=== PATIENT | female | born 1940 | race African-American/Black ===

== ENCOUNTER 2016-05-23 12:53 | Inpatient (IN) | payer OTHER ==
--- NOTE | ~2016-05-23 | OP ---
Record Of Operation [facility] [address] [place]. [address] NAME: AMANUEL JONAS : 38 STATUS : ADM IN PAT#: [id number] AGE: 76 ADM/REG DATE : 05/23/16 MR#: [id number] REPORT SERV DATE: 05/24/16 DICTATED BY: MATTHEW NAIK DATE: 05/23/16 REPORT STATUS : Draft TRANSCRIBED BY: MODL DATE: 05/23/16 DATE OF PROCEDURE: 05/23/2016 PREOPERATIVE DIAGNOSIS: Left femur multiple myeloma. POSTOPERATIVE DIAGNOSIS: Left femur multiple myeloma. PROCEDURE: Left femur IM nail. SURGEON: Robyn Naik M.D. MEDICAL ART THERAPIST: See chart. DESCRIPTION OF PROCEDURE: The patient was taken to the operating room, placed supine on the table in normal fashion without incident. General anesthetic was induced per the anesthesiologist. The patient was carefully positioned, padded, prepped, and draped in normal sterile fashion. Under fluoroscopic guidance, an incision was made in the proximal and lateral trochanter. Starting awl and starting guidewire were then placed through the trochanter into the intramedullary canal, was checked in AP and lateral views. This was followed by a starter reamer and then a ball-tipped guidewire. The guidewire was checked in AP and lateral views at the knee. This was followed by sequential reamers to a 12 x 5, and a 38 x 11 mm nail was chosen and impacted. It was checked in AP and lateral views proximally and distally. The proximal targeting device was used to place two cross screws, one up in the femoral head and one across the trochanters. I could not, by the way, stay two screws both up into the neck because of her small stature versus the configuration of the screws. This was again checked in AP and lateral views. The targeting device disassembled, the wound irrigated, closed, and dressed sterilely. The patient was awakened and taken to the postanesthesia care unit without incident. COMPLICATIONS: None. SPECIMENS: None. BLOOD LOSS: About 50 mL. WTB/MODL Robyn Naik M.D. / [id number] CC: Robyn Naik M.D. Record Of Operation [address] [address] NAME: AMANUEL JONAS : 38 STATUS : ADM IN PAT#: [id number] AGE: 76 ADM/REG DATE : 05/23/16 MR#: [id number] REPORT SERV DATE: 05/24/16 DICTATED BY: MATTHEW NAIK DATE: 05/23/16 REPORT STATUS : Draft TRANSCRIBED BY: MODL DATE: 05/23/16 Crystal Toussaint M.D.
--- NOTE | ~2016-05-23 | DS ---
Discharge Summary [facility] [address] [place]. [address] NAME: AMANUEL OJNAS : 38 STATUS : DIS IN PAT#: [id number] AGE: 76 ADM/REG DATE : 05/23/16 MR#: [id number] REPORT SERV DATE: 06/04/16 DICTATED BY: MATTHEW NAIK DATE: 06/03/16 REPORT STATUS : Draft TRANSCRIBED BY: MARYAN DATE: 06/03/16 Data Collection from hospitalization DISCHARGE DIAGNOSES: 1. Left femur multiple myeloma. 2. Hypertension. 3. History of kidney cancer. 4. Sleep apnea. 5. Osteoarthritis. 6. Hypothyroidism. 7. Hypercholesterolemia. CONSULTATIONS: None. PROCEDURES PERFORMED: Left femur IM nail, 05/23/2016. DISCHARGE MEDICATIONS: Zovirax 400 mg twice a day; aspirin 81 mg daily; Lipitor 40 mg at bedtime; Rocaltrol 0.25 mcg on Mondays, Wednesdays, and Fridays; vitamin B12 of 1000 mcg daily; Decadron 20 mg every 7 days; Lanoxin 0.125 mg with lunch; Colace 100 mg twice a day; Zantac 300 mg daily as needed; ferrous sulfate 300 mg with breakfast and supper; Lasix 40 mg every 48 hours; Imdur 30 mg daily; Theragran tablets one tablet with breakfast; Nephro-Nichol one tablet with lunch; Toprol-XL 50 mg twice a day; Coumadin as instructed; Requip 5 mg twice a day; Apresoline 10 mg twice a day; Tylenol 650 mg every 4 hours as needed; Mylanta 30 mL as needed; Artificial Tears one drop daily as needed in both eyes; Dulcolax 15 mg as needed; [place]ust[place]ord 5/325 one to two tablets every four hours as needed; milk of magnesia 30 mL as needed; Singulair 10 mg daily as needed; Zofran 4 mg every four hours as needed; MiraLAX powder one packet twice a day as needed; ProAir two puffs via inhaler as needed; Pomalyst 2 mg daily. CONDITION AT DISCHARGE: Stable. DISPOSITION: The patient was [facility] on a regular diet with activities as instructed. She would follow up with me two weeks following discharge. HOSPITAL COURSE: This is a 76-year-old female who has been seen in the clinic for followup of left hip pain status post injection on 05/16/2016. The patient said this gave relief for about one day. The patient does have pain with weightbearing. She said that her pain was a 10 on a scale of 0-10. This patient has multiple myeloma, and there is a left hip questionable impending fracture with painful lesion. The right hip have small non-painful lesions. Treatment options were discussed, and it was elected to proceed with surgical intervention. She was admitted to the hospital at this time for further evaluation and treatment. Upon admission, she was taken to the operating room where she underwent the above-mentioned procedure. She tolerated this well. There were no complications. On postop day #1, she was evaluated by Occupational and Physical Therapy. She did have some confusion. She was up sitting in a chair. She had no new complaints. She had normal distal pulses. IV fluids were continued. We encouraged her to increase her oral intake. On the , she was in no Discharge Summary [address] [address] NAME: AMANUEL JONAS : 38 STATUS : DIS IN PAT#: [id number] AGE: 76 ADM/REG DATE : 05/23/16 MR#: [id number] REPORT SERV DATE: 06/04/16 DICTATED BY: MATTHEW NAIK DATE: 06/03/16 REPORT STATUS : Draft TRANSCRIBED BY: MARYAN DATE: 06/03/16 acute distress. MITA hose were in place. She had diminished breath sounds in the bases. Creatinine level was 2.20. She continued to do well. She continued to have a little confusion. O2 saturation was 97% on 2 L nasal cannula. Discharge planning was performed. On 05/27/2016, she was ambulating in the halls with Physical Therapy. Creatinine level was 1.93. Discharge instructions were given. Due to her improved and stable condition, she was discharged to [facility] with the above-stated instructions. Information collected by: Mariam Morrison I submit the above information as my discharge summary. JANE/MARYAN Robyn Naik M.D. / [id number] CC: Meme Kebede M.D. [facility]
[~2016-05-23 12:53] MED LIST: ASAB PO; BIST PO; CLARIT10 PO; CYTOTEC2 PO; DILT-XR180 MG PO; LORT7 PO; LYRICA75 PO; NEUR300 PO; NEXIUM40 PO; T PO; TUMSROLL PO; VIT D PO; VITAMIN B-121000 MC1 PO; VITAMIN B-121000 MC1 SL; VITAMIN D31000 UNIT PO; VOLT75 PO; ZOVI800 PO; ZYRTEC ALLGY10 MG PO
[2016-05-23 16:01] LABS: HEMOGLOBIN 8.5 g/dL (12.0-16.0); MEAN CORPUS HGB CONC 29.7 g/dL (32.0-36.0); MEAN CORPUSCULAR VOLUME 94.1 fL (80-100); MEAN PLATELET VOLUME 10.2 fL (9.2-13.0); RBC DISTRIBUTION WIDTH 22.2 % (12.0-16.0); RED CELL COUNT 3.04 10/6/uL (4.0-5.6); WHITE BLOOD CELLS 6.9 10/3/uL (4.5-10.5)
[2016-05-23 16:02] LABS: HEMATOCRIT 28.6 % (36.0-48.0); MANUAL DIFF YES %; PLATELET COUNT 367 10/3/uL (150-400)
[2016-05-23 16:05] LABS: INTERNATIONAL NORMAL RATI 1.5 UNITS (-); PROTIME (NOT ORD) 18.3 SEC (12.0-14.5)
[2016-05-23 16:14] LABS: A/G RATIO 1.1 (0.7-1.9); ALKALINE PHOSPHATASE 49 U/L (45-117); BUN (BLOOD UREA NITROGEN) 24 MG/DL (6-23); CALCIUM, SERUM 8.9 MG/DL (8.5-10.4); CHLORIDE, SERUM 108 MMOL/L (96-112); CO2 (CARBON DIOXIDE) 32 MMOL/L (24-34); CREATININE 1.86 MG/DL (0.55-1.02); GFR AFRICAN AMERICAN 30 ML/MIN (>=60); GFR NON AFRICAN AMERICAN 26 ML/MIN (>=60); GLOBULIN 2.7 G/DL (2.5-4.1); POTASSIUM, SERUM 3.7 MMOL/L (3.5-5.3); SGOT(AST) 13 U/L (5-40); SGPT(ALT) 17 U/L (5-65); SODIUM, SERUM 148 MMOL/L (135-148); TOTAL BILIRUBIN 0.4 MG/DL (0-1.2); TOTAL PROTEIN 5.7 G/DL (6.0-8.5)
[2016-05-23 16:15] LABS: GLUCOSE, SERUM 89 MG/DL (60-99)
[2016-05-23 16:54] LABS: BAND NEUTROPHILS 3 %; BASOPHILS 2 %; BASOPHILS ABSOLUTE (CALC) 0.14 10/3/uL (0.0-0.16); EOSINOPHILS 8 %; EOSINOPHILS ABSOLUTE (CALC) 0.55 10/3/uL (0.0-0.53); IMMATURE GRANS ABSOLUTE (CALC) 0.21 10/3/uL (0.0-0.11); LYMPHOCYTES 18 %; LYMPHOCYTES ABSOLUTE (CALC) 1.24 10/3/uL (0.67-4.30); METAMYELOCYTES 3 %; MONOCYTES 2 %; MONOCYTES ABSOLUTE (CALC) 0.14 10/3/uL (0.21-1.20); NEUTROPHILS ABSOLUTE (CALC) 4.62 10/3/uL (2.02-8.40); PLATELET ESTIMATE ADQ (ADEQUATE); SEGMENTED NEUTROPHIL (0) 64 %; TOTAL NUCLEATED CELLS 100
[2016-05-23 16:55] LABS: OVALOCYTES 1+ (3-10/OIF) (0-2/OIF); SCHISTOCYTES OCC (0-2/OIF)
[2016-05-24 05:13] LABS: HEMATOCRIT 30.4 % (36.0-48.0); HEMOGLOBIN 9.2 g/dL (12.0-16.0)
[2016-05-24 05:20] LABS: INTERNATIONAL NORMAL RATI 1.6 UNITS (-); PROTIME (NOT ORD) 18.5 SEC (12.0-14.5)
[2016-05-24 05:28] LABS: BUN (BLOOD UREA NITROGEN) 24 MG/DL (6-23); CALCIUM, SERUM 8.4 MG/DL (8.5-10.4); CHLORIDE, SERUM 108 MMOL/L (96-112); CREATININE 1.93 MG/DL (0.55-1.02); GFR AFRICAN AMERICAN 28 ML/MIN (>=60); GFR NON AFRICAN AMERICAN 25 ML/MIN (>=60); POTASSIUM, SERUM 3.7 MMOL/L (3.5-5.3); SODIUM, SERUM 147 MMOL/L (135-148)
[2016-05-24 05:29] LABS: CO2 (CARBON DIOXIDE) 27 MMOL/L (24-34); GLUCOSE, SERUM 162 MG/DL (60-99)
[2016-05-24] MEDS ORDERED: REFRESH OPH (17:06)
[2016-05-24] MEDS ORDERED: SINGULAIR1 PO (17:07)
[2016-05-24] MEDS ORDERED: PROAIR HFA INH (17:07)
[2016-05-24] MEDS ORDERED: NEPHRO-VITE PO (17:07)
[2016-05-24] MEDS ORDERED: LIPITOR40 PO (17:07)
[2016-05-24] MEDS ORDERED: NORCO1 TA1 PO (17:07)
[2016-05-24] MEDS ORDERED: APRES10B PO (17:08)
[2016-05-24] MEDS ORDERED: L40 PO (17:08)
[2016-05-24] MEDS ORDERED: ROCALTROL 0.0.25 MCG PO (17:08)
[2016-05-24] MEDS ORDERED: LAN125 PO (17:08)
[2016-05-24] MEDS ORDERED: IMDUR30 PO (17:08)
[2016-05-24] MEDS ORDERED: ELIQUIS 5 MG TAB5 MG PO (17:09)
[2016-05-24] MEDS ORDERED: ZOVIRAX400 MG PO (17:09)
[2016-05-24] MEDS ORDERED: HALF81 PO (17:10)
[2016-05-24] MEDS ORDERED: ZANTAC300 MG PO (17:10)
[2016-05-24] MEDS ORDERED: TOPXL50 PO (17:10)
[2016-05-24] MEDS ORDERED: POMALYST2 MG PO (17:11)
[2016-05-24] MEDS ORDERED: DEX4 PO (17:11)
[2016-05-24] MEDS ORDERED: CYANO1000T PO (17:12)
[2016-05-25 05:14] LABS: BASOPHILS 0.2 %; BASOPHILS ABSOLUTE 0.02 10/3/uL (0.0-0.16); EOSINOPHILS 0.2 %; EOSINOPHILS ABSOLUTE 0.02 10/3/uL (0.0-0.53); HEMATOCRIT 25.8 % (36.0-48.0); HEMOGLOBIN 8.1 g/dL (12.0-16.0); IMMATURE GRANULOCYTES 1.1 %; LYMPHOCYTES ABSOLUTE 0.95 10/3/uL (0.67-4.30); MANUAL DIFF NO %; MEAN CORPUS HGB CONC 31.4 g/dL (32.0-36.0); MEAN CORPUSCULAR HEMOGLOB 28.9 pg (26.0-34.0); MEAN CORPUSCULAR VOLUME 92.1 fL (80-100); MEAN PLATELET VOLUME 10.3 fL (9.2-13.0); MONOCYTES 4.4 %; MONOCYTES ABSOLUTE 0.42 10/3/uL (0.21-1.20); NEUTROPHILS 84.1 %; NEUTROPHILS ABSOLUTE 7.95 10/3/uL (2.02-8.40); PLATELET COUNT 227 10/3/uL (150-400); RBC DISTRIBUTION WIDTH 21.1 % (12.0-16.0); WHITE BLOOD CELLS 9.5 10/3/uL (4.5-10.5)
[2016-05-25 05:23] LABS: INTERNATIONAL NORMAL RATI 1.5 UNITS (-); PROTIME (NOT ORD) 17.7 SEC (12.0-14.5)
[2016-05-25 05:30] LABS: CALCIUM, SERUM 8.4 MG/DL (8.5-10.4); CHLORIDE, SERUM 109 MMOL/L (96-112); CO2 (CARBON DIOXIDE) 24 MMOL/L (24-34); GFR AFRICAN AMERICAN 24 ML/MIN (>=60); GFR NON AFRICAN AMERICAN 21 ML/MIN (>=60); GLUCOSE, SERUM 150 MG/DL (60-99); POTASSIUM, SERUM 4.3 MMOL/L (3.5-5.3); SODIUM, SERUM 144 MMOL/L (135-148)
[2016-05-25 05:33] LABS: BUN (BLOOD UREA NITROGEN) 37 MG/DL (6-23)
[2016-05-26 05:37] LABS: HEMATOCRIT 26.7 % (36.0-48.0); HEMOGLOBIN 8.2 g/dL (12.0-16.0)
[2016-05-26 05:43] LABS: INTERNATIONAL NORMAL RATI 1.5 UNITS (-); PROTIME (NOT ORD) 18.4 SEC (12.0-14.5)
[2016-05-26 06:18] LABS: CALCIUM, SERUM 8.7 MG/DL (8.5-10.4); CHLORIDE, SERUM 110 MMOL/L (96-112); CO2 (CARBON DIOXIDE) 28 MMOL/L (24-34); CREATININE 1.93 MG/DL (0.55-1.02); GFR AFRICAN AMERICAN 28 ML/MIN (>=60); GFR NON AFRICAN AMERICAN 25 ML/MIN (>=60); POTASSIUM, SERUM 4.4 MMOL/L (3.5-5.3); SODIUM, SERUM 145 MMOL/L (135-148)
[2016-05-26 06:33] LABS: BUN (BLOOD UREA NITROGEN) 41 MG/DL (6-23); GLUCOSE, SERUM 106 MG/DL (60-99)
[2016-05-27 05:29] LABS: INTERNATIONAL NORMAL RATI 1.8 UNITS (-); PROTIME (NOT ORD) 20.7 SEC (12.0-14.5)
[2016-05-27 05:40] LABS: HEMATOCRIT 27.3 % (36.0-48.0); HEMOGLOBIN 8.4 g/dL (12.0-16.0)
== END 2016-05-27 16:57 | DRG 824 ==
LOC: 3SO 12:53
PROVIDERS: Nurse Practitioner Acute Care; Specialist
PROC: 30233N1 Transfusion of Nonautologous Red Blood Cells into Peripheral Vein, Percutaneous Approach (ICD-10-PCS; 2016-05-23)
PROC: 0QS904Z Reposition Left Femoral Shaft with Internal Fixation Device, Open Approach (ICD-10-PCS; principal; 2016-05-23 16:15)
DX: C90.00 Multiple myeloma not having achieved remission (principal); N18.4 Chronic kidney disease, stage 4 (severe); D62 Acute posthemorrhagic anemia; I12.9 Hypertensive chronic kidney disease with stage 1 through stage 4 chronic kidney disease, or unspecified chronic kidney disease; E78.5 Hyperlipidemia, unspecified; K21.9 Gastro-esophageal reflux disease without esophagitis; I25.10 Atherosclerotic heart disease of native coronary artery without angina pectoris; Z95.1 Presence of aortocoronary bypass graft
CPT/HCPCS: 36415; 71020; 76000; 80048; 80053; 85014; 85018; 85025; 85610; 86850; 86900; 86901; 86920; 93005; 97110-GP; 97116-GP; 97162-GP; 97165-GO; 97530-GP; A9270-GY; C1713; C1769; G8978-CL-GP; G8979-CK-GP; G8980-CK-GP; G8987-CK-GO; G8988-CI-GO; J0360; J0690; J1885; J2270; J2274; J2370; J2405; J2550; J2710; J2795; J3010; P9016